=== PATIENT | female | born 1995 | race Caucasian/White ===

== ENCOUNTER 2023-05-04 23:36 | Emergency (ER) | payer OTHER ==
[2023-05-04 23:46] VITALS: BP 146/102; PULSE 88; RESP 18; TEMP 98.9; BMI 58.2
[2023-05-05] MEDS ORDERED: AMOXICILLIN 500 MG CAPSULE (FP) PO ONE (00:06)
[2023-05-05] MEDS ORDERED: AMOXICILLIN 250 MG CAPSULE ONE (00:08)
== END 2023-05-05 00:14 | disposition home or self-care (01) ==
LOC: FER 23:36
DX: J02.9 Acute pharyngitis, unspecified (principal); R59.9 Enlarged lymph nodes, unspecified
CPT/HCPCS: 87651; 99283-25